=== PATIENT | female | born 1945 | race Caucasian/White ===

== ENCOUNTER 2018-09-26 06:06 | Inpatient (IN) | payer MEDICARE ==
[2018-09-26] MEDS ORDERED: Naloxone HCl 0.4 mg/ml Vial ONE (06:23)
[2018-09-26 06:40] LABS: #Eosinphils 0.1 thou/uL (0.0-0.7); #Lymphocytes 1.2 thou/uL (1.20-3.40); #Monocytes 1.2 thou/uL (0.11-0.59); #Neutrophils 16.8 thou/uL (1.40-6.50); %Basophils 0.1 % (0.0-1.0); %Eosinophils 0.4 % (0.0-10.0); %Lymphocytes 6.2 % (21.0-51.0); %Monocytes 6.1 % (0.0-10.0); %Neutrophils 87.2 % (42.0-75.0); Hemoglobin 10.5 g/dL (12.0-16.0); Mean Corpuscular HGB CONC 32.4 g/dL (32.0-36.0); Mean Corpuscular Hemoglobin 30.7 pg (27.0-31.0); Mean Corpuscular Volume 94.8 fL (78.0-98.0); Mean Platelet Volume 6.5 fL (7.4-10.4); Platelet Count 423 thou/uL (130-400); RBC Distribution Width 12.6 % (11.5-14.5); Red Blood Cell (RBC) Count 3.41 mill/uL (4.20-5.40); White Blood Cell (WBC) Count 19.3 thou/uL (4.8-10.8)
[2018-09-26 06:57] LABS: ALT (SGPT) 11 U/L (8-55); AST (SGOT) 21 U/L (5-34); Acetaminophen Less than 6.0 mcg/mL (10.0-30.0); Albumin 3.8 g/dL (3.4-4.8); Alcohol Less than 10 mg/dL (Less than 10); Alkaline Phosphatase 110 U/L (40-150); Anion Gap 16 mmol/L (10-20); BUN (Urea Nitrogen) 75 mg/dL (9.8-20.1); Bilirubin, Total 0.3 mg/dL (0.2-1.2); CK (CPK) 72 U/L (29-168); Calc. Creatinine Clearance 0 mL/min (70-130); Carbon Dioxide 28 mmol/L (23-31); Chloride 98 mmol/L (98-107); Estimated GFR-MDRD 19; Globulin 2.9 g/dL (2.4-3.5); Glucose 156 mg/dL (83-110); Potassium 4.6 mmol/L (3.5-5.1); Protein, Total 6.7 g/dL (6.0-8.3); Salicylate Less than 8.0 mg/dL (15.0-30.0); Sodium 137 mmol/L (136-145)
[2018-09-26 07:28] LABS: Bilirubin Negative (Negative); Blood, Urine Negative (Negative); Clarity CLEAR (Clear); Glucose, Urine (Dipstick) Negative (Negative); Leukocyte Negative (Negative); Nitrite Negative (Negative); Protein, Urine (Dipstick) Negative (Neg-Trace); Urobilinogen 0.2 mg/dL (0.2-1.0)
[2018-09-26 07:47] LABS: Amphetamine Not Detected (NotDetected); Barbiturates Screen Not Detected (NotDetected); Benzodiazepine Screen Detected (NotDetected); Cocaine Metabolite Screen Not Detected (NotDetected); Medtox Control Line Valid? VALID (VALID); Medtox Reader # READER 1; Methadone Not Detected (NotDetected); Methamphetamine Not Detected (NotDetected); Opiate Screen Not Detected (NotDetected); Oxycodone Screen Not Detected (NotDetected); Phencyclidine (PCP) Not Detected (NotDetected); THC/Cannabinoid Screen Not Detected (NotDetected); Tricyclic Screen Not Detected (NotDetected)
--- NOTE | 2018-09-26 07:52 | RAD ---
CHEST 1 VIEW: COMPARISON: 08/21/2014. HISTORY: Altered mental status. FINDINGS: Normal cardiac silhouette. Pulmonary vessels and hilum are normal. Costophrenic angles are clear. No consolidation or mass. No pneumothorax or osseous abnormalities. Remote right rib fractures. Hi atal hernia is noted. Mild leftward curvature of the upper lumbar spine. IMPRESSION: No acute cardiopulmonary process. POS: [facility]
[2018-09-26] MEDS ORDERED: Piperacillin/Tazobactam 3.375 GM VIAL ONE (08:05)
--- NOTE | 2018-09-26 08:35 | CT ---
PRELIMINARY REPORT/[facility]/EMERGENTY AFTER-HOURS PROCEDURE CT Head Without Contrast EXAM DATE/TIME: 09/26/2018 6:39 AM CLINICAL HISTORY: 72 years old, female; Injury or trauma; Fall; Initial encounter; Abrasion; Head, generalized; Additio nal info: History provided by patient, additional history obtained from ems, f72 presents to ed for f all and AMS. PT called ems from home after PT fell on toilet, hit head. PT has small abrasion on head from fall. PT was anox3 en route by ems and has no complaints at this time. PT denies headac he or neck pain. Hx-diabetic. TECHNIQUE: Axial computed tomography images of the head/brain without contrast. COMPARISON: No relevant prior studies available. FINDINGS: Brain: There is no evidence of intracranial hemorrhage. There are scattered foci of hypoattenuation w ithin the periventricular and subcortical white matter compatible with mild chronic microvascular isc hemic change. Ventricles: Normal. No ventriculomegaly. Bones/joints: Unremarkable. No acute fracture. Sinuses: Visualized sinuses are unremarkable. No acute sinusitis. Mastoid air cells: Visualized mastoid air cells are unremarkable. No mastoid effusion. Soft tissues: Unremarkable. IMPRESSION: No acute intracranial hemorrhage. Thank you for allowing us to participate in the care of your patient. Dictated and Authenticated by: Kevin Saha MD 09/26/2018 7:05 AM Central Time ([place] & [place]) FINAL REPORT HEAD CT WITHOUT CONTRAST: HISTORY: Fall. Altered mental status. COMPARISON: 08/19/2014. FINDINGS: This report is in agreement with the preliminary report by [facility]. No intracranial posttraumatic sequel ae. White matter hypodensities due to chronic small-vessel ischemic changes are identified. POS: [facility]
[2018-09-26] MEDS ORDERED: Ondansetron PF 4 MG/2 ML Vial IVP PRN ×2 (09:51→10:12)
[2018-09-26] MEDS ORDERED: Ondansetron ODT 4 MG TAB PO PRN (09:51)
[2018-09-26] MEDS ORDERED: Acetaminophen 325 MG TAB PO PRN (09:52)
[2018-09-26] MEDS ORDERED: Sodium Chloride 0.9% 1,000 ML IV SCH (10:00)
[2018-09-26] MEDS ORDERED: Vancomycin HCl 1 GM in Premix Bag 1 BAG IVPB SCH (10:00)
[2018-09-26] MEDS: Sodium Chloride 0.9% 1,000 ML IV SCH (11:13)
[2018-09-26] MEDS ORDERED: Dextrose 50% Abboject 50 ML SYRINGE SLOW IVP PRN (13:43)
[2018-09-26] MEDS ORDERED: Dextrose 5% in Water 1,000 ML IV PRN (13:43)
[2018-09-26 14:20] VITALS: BMI 22.8
--- NOTE | 2018-09-26 14:20 | HP ---
PRIMARY CARE PROVIDER: None, city call. CHIEF COMPLAINT: Altered mental status. HISTORY OF PRESENT ILLNESS: Ms. Romero is a pleasant 72-year-old lady, seen at [facility] on September 26, 2018. The patient is able to provide minimal history. Collateral history was obtained from review of medical records and from discussion with emergency room physician. The patient reports that she fell 3 days ago and last night. She describes these as mechanical fall after she tripped on something. She denies any neck pain. She denies any fevers or chills. She is able to tell me her name, but is not oriented to place or time. She denies any chest pain or shortness of breath. She denies any abdominal pain. She denies any cough. She denies any urinary symptoms. REVIEW OF SYSTEMS: All other systems were reviewed and found to be negative. PAST MEDICAL HISTORY: Congestive heart failure, diabetes mellitus type 2, hypothyroidism, depression, hypertension, neuropathy, and degenerative joint disease. SURGICAL HISTORY: Left total knee replacement, tubal ligation, hysterectomy, cataract surgery. ALLERGIES: NO KNOWN DRUG ALLERGIES. MEDICATIONS: Unknown, need to be clarified. FAMILY HISTORY: Could not be elicited. SOCIAL HISTORY: The patient denies tobacco use, alcohol use, or recreational drug use. She lives with her . CODE STATUS: I discussed the patient's code status. In spite of her confused state, she is able to understand the question being asked of her and wishes to be full code. Her is the surrogate decision maker. PHYSICAL EXAMINATION: GENERAL: On examination, Ms. Romero is awake and alert, not in acute distress. VITAL SIGNS: Blood pressure is 138/66, pulse 62, respiratory rate 16, and oxygen saturation 98% on room air. She is afebrile. EYES: No scleral icterus. No conjunctival pallor. ENT: Dry mucosal membranes. No oropharyngeal erythema or exudates. NECK: Supple, nontender. Trachea is midline. RESPIRATORY: Accessory muscles of breathing are not active. Chest wall movements are symmetric bilaterally. Lungs are clear to auscultation without wheeze, rhonchi, or crepitations. CARDIOVASCULAR: S1 and S2 are heard, regular. Peripheral pulses palpable. No carotid bruit. No pericardial rub. ABDOMEN: Soft, nontender, bowel sounds heard, no hepatomegaly, no splenomegaly. NEUROLOGIC: Cranial nerves 2 through 12 intact, deep tendon reflexes 2+. Full neurologic examination was not possible secondary to the patient's noncooperation. Plantar reflexes are downgoing bilaterally. MUSCULOSKELETAL: Power is 5/5 in all four extremities. SKIN: Abrasion on the head. LYMPHATIC: No cervical lymphadenopathy. PSYCHIATRIC: Normal mood, normal affect. The patient is oriented to person only, not place or time. LABORATORY DATA: Ms. Romero's labs and investigations were reviewed. I reviewed her electrocardiogram, which shows normal sinus rhythm, no ST changes to suggest an acute coronary syndrome. I also reviewed her chest x-ray, which does not show any pulmonary infiltrates. Noncontrast CT scan of the brain was unremarkable. She has leukocytosis with 19,300 white cells, of which 87.2% are neutrophils; normocytic anemia with hemoglobin 10.5; elevated platelet count of 423,000. Normal sodium, normal potassium, elevated blood urea nitrogen of 75, elevated creatinine of 2.50, last known creatinine 1.00 on August 24, 2014. Unremarkable liver profile, negative urinalysis and urine drug screen that is only positive for benzodiazepines. ASSESSMENT AND PLAN: Ms. Romero is a pleasant 72-year-old lady, who was seen at [facility] on September 26, 2018. Her problem list includes: 1. Acute metabolic encephalopathy: Etiology is unclear, could be related to infection given her leukocytosis. She will be admitted to the hospital for further management. She has been started on Zosyn and vancomycin, which I will continue for now. We will await blood cultures. We will check MRI of the brain. We will also consult Neurology Service for opinion and help with management. 2. Falls: The patient reports recurrent falls. We will request PT evaluation. 3. Hypertension: We will resume the patient's home medications once clarified, monitor vital signs, and titrate antihypertensives as needed. 4. Acute kidney injury: The patient is clinically dehydrated. We will provide intravenous hydration, recheck creatinine. If not improving, further workup to follow. 5. Diabetes mellitus type 2: Start Accu-Cheks, insulin sliding scale. 6. Depression: Mild, appears stable. 7. Congestive heart failure: Appears stable. Many thanks for allowing me to participate in Ms. Romero's care. Please feel free to contact me with any questions or concerns. LEVEL OF RISK: High. LEVEL OF COMPLEXITY: High. Job ID: [id number]
[2018-09-26] MEDS ORDERED: Colchicine 0.6 MG TAB PO PRN ×2 (15:21→15:37)
--- NOTE | 2018-09-26 15:57 | MRI ---
BRAIN MRI WITHOUT CONTRAST: Date: 09/26/18 COMPARISON: 08/20/14. HISTORY: Fall, altered mental status, acute encephalopathy. TECHNIQUE: Multiplanar, multisequence MR imaging of the brain obtained without contrast. FINDINGS: The axial gradient echo imaging demonstrates no evidence for intracranial hemorrhage. There are numerous foci of increased T2 and FLAIR signal within the periventricular, deep, and subcor tical white matter, as well as within the meera, evidence of moderate small vessel disease, more consp icuous than on the 2014 exam. Arterial flow-voids at the axial level of the skull base appear unremarkable on the T2-weighted imagi ng. Regional bone marrow signal intensity appears within normal limits. The diffusion-weighted imaging demonstrates no evidence for acute infarction. IMPRESSION: No evidence for acute infarction or intracranial hemorrhage. Moderate small vessel disease, progresse d since the 2014 exam. POS: [facility]
[2018-09-26] MEDS ORDERED: Piperacillin/Tazobactam 3.375 GM in Sodium Chloride 0.9% 100 ML IVPB SCH (16:00)
[2018-09-26] MEDS: Topiramate 25 MG TAB PO SCH (21:00)
[2018-09-26] MEDS ORDERED: TOPIRAMATE 75 MG PO SCH (21:00)
[2018-09-26] MEDS: HumaLOG 300 UNITS/3 ML VIAL SC PRN (22:14)
[2018-09-27] MEDS: Sodium Chloride 0.9% 1,000 ML IV SCH ×2 (03:56→13:59)
[2018-09-27 06:12] LABS: #Lymphocytes 1.6 thou/uL (1.20-3.40); #Monocytes 0.6 thou/uL (0.11-0.59); #Neutrophils 13.1 thou/uL (1.40-6.50); %Basophils 0.3 % (0.0-1.0); %Eosinophils 0.3 % (0.0-10.0); %Lymphocytes 10.4 % (21.0-51.0); %Monocytes 4.1 % (0.0-10.0); Hemoglobin 9.5 g/dL (12.0-16.0); Mean Corpuscular HGB CONC 32.6 g/dL (32.0-36.0); Mean Corpuscular Volume 95.2 fL (78.0-98.0); Mean Platelet Volume 6.6 fL (7.4-10.4); Platelet Count 410 thou/uL (130-400); RBC Distribution Width 12.6 % (11.5-14.5); Red Blood Cell (RBC) Count 3.06 mill/uL (4.20-5.40); White Blood Cell (WBC) Count 15.4 thou/uL (4.8-10.8)
[2018-09-27 06:31] LABS: Anion Gap 17 mmol/L (10-20); BUN (Urea Nitrogen) 45 mg/dL (9.8-20.1); Calc. Creatinine Clearance 28 mL/min (70-130); Calcium 9.1 mg/dL (7.8-10.44); Carbon Dioxide 21 mmol/L (23-31); Chloride 104 mmol/L (98-107); Estimated GFR-MDRD 31; Glucose 264 mg/dL (83-110); Potassium 4.3 mmol/L (3.5-5.1); Sodium 138 mmol/L (136-145)
[2018-09-27] MEDS: HumaLOG 300 UNITS/3 ML VIAL SC PRN ×2 (06:55→13:41)
[2018-09-27] MEDS ORDERED: Levothyroxine Sodium 75 MCG TAB PO SCH (09:00)
[2018-09-27] MEDS ORDERED: Citalopram 20 MG TAB PO SCH (09:00)
[2018-09-27] MEDS ORDERED: Benzonatate 100 MG CAP PO SCH (09:00)
[2018-09-27] MEDS ORDERED: Aspirin Chewable 81 MG TAB PO SCH (09:00)
[2018-09-27] MEDS ORDERED: BENZONATATE PO SCH (09:00)
[2018-09-27] MEDS ORDERED: Non-Formulary Item 1 EACH (Esomeprazole Magnesium [Nexium] 20 MG) PO SCH (09:00)
[2018-09-27] MEDS: Topiramate 25 MG TAB PO SCH (09:27)
[2018-09-27] MEDS ORDERED: Vancomycin HCl 750 MG in Sodium Chloride 0.9% 250 ML 250 ML IVPB SCH (11:00)
--- NOTE | 2018-09-27 14:32 | CON ---
DATE OF CONSULTATION: 09/27/2018 CARDIOLOGY CONSULTATION REASON FOR CONSULTATION: Nonsustained SVT. HISTORY OF PRESENT ILLNESS: Ms. Romero is a very pleasant 72-year-old white female who comes to the hospital for altered mental status. She was evaluated and diagnosed with an infectious process, unknown source, and was started on IV antibiotics. She was admitted to the stroke unit and has been on telemetry since. Earlier today, she had a run of nonsustained SVT, heart rate in the 150s, it lasted for about 3 seconds. She was asymptomatic during the episode. On my evaluation, Ms. Romero feels back to normal. She states that she wants to go home and she has to take care of her . PAST MEDICAL HISTORY: 1. History of heart failure. However, talking to her, she has been told that at some point she had some heart failure, but she has always been told that her heart looks normal. The last evaluation we have here is in 2013 with an echo with an EF which was in the 60% range. 2. Type 2 diabetes. 3. Hypothyroidism. 4. Depression. 5. Hypertension. 6. Peripheral neuropathy. 7. Degenerative joint disease. PAST SURGICAL HISTORY: 1. Left total knee replacement. 2. Tubal ligation. 3. Hysterectomy. 4. Cataract surgery. ALLERGIES: NO KNOWN DRUG ALLERGIES. OUTPATIENT MEDICATIONS: 1. Humulin N insulin. 2. Nexium. 3. Aspirin 81 a day. 4. Metoprolol succinate 100 mg a day. 5. Celexa. 6. Benzonatate. 7. Meloxicam. 8. Colchicine. 9. Zofran p.r.n. 10. Synthroid 75 mcg a day. 11. Humalog. 12. Lasix 80 mg a day. 13. Ativan. 14. Topamax. 15. Ultram. 16. Zanaflex. ALLERGIES: NO KNOWN DRUG ALLERGIES. SOCIAL HISTORY: No alcohol, tobacco, or drugs. FAMILY HISTORY: No early coronary artery disease. REVIEW OF SYSTEMS: A 12-point review of systems was done and was found to be negative unless stated in the history of present illness. PHYSICAL EXAMINATION: VITAL SIGNS: Temperature 98.6, pulse 71, respiratory rate 18, saturation 94% on room air, and blood pressure 148/70. GENERAL: Awake, alert, and oriented x3, in no distress. HEENT: Normocephalic and atraumatic. NECK: Supple. LUNGS: Clear. CARDIOVASCULAR: S1 and S2. No S3 or S4. No murmurs. ABDOMEN: Soft. Positive bowel sounds. EXTREMITIES: No edema. SKIN: Warm and dry. LABORATORY DATA: Laboratory work was reviewed. CBC with a white count of 15 down from 19, hemoglobin of 9.5, hematocrit of 29, platelet count of 410. Chemistries unremarkable except for a creatinine of 2.5 on admission but down to 1.6, BUN of 75 down to 45. LFTs were all normal. Troponin x1 was negative. UA was negative. Toxicology was just positive for benzodiazepines, otherwise everything was not detected. Blood cultures are negative so far. Urine culture is negative as well. Telemetry was reviewed. EKG was reviewed. ASSESSMENT: 1. Nonsustained supraventricular tachycardia. 2. Infectious process. 3. Falls and altered mentation, improved. 4. History of heart failure, unknown which kind, likely diastolic. PLAN: 1. For nonsustained SVT, we would only recommend be on a beta-charlotte. She is already on 100 mg of Toprol-XL, will continue this home medication. 2. We will get an echocardiogram to make sure that her LV function and valvular structures are not remarkable. 3. Further recommendations per results of echo. 4. Otherwise, from the SVT standpoint, just a beta-charlotte and may be discharged home. Job ID: [id number]
--- NOTE | 2018-09-27 15:21 | PDOC.PN ---
- Subjective Encounter Start Date: 09/27/18 Encounter Start Time: 11:40 Pt seen for followup re: acute metabolic encephalopathy. Denies chest pain, shortness of breath, fevers or chills. - Objective Resuscitation Status - Order Detail: 09/26/18 13:41 Resuscitation Status Routine Resuscitation Status: FULL: Full Resuscitation Discussed with: patient TIGIST Reviewed: Yes Vital Signs & Weight: Vital Signs (12 hours) Temp Pulse Pulse Pulse Resp BP BP 09/27/18 11:23 98.6 F 71 18 09/27/18 09:35 79 77 180/81 H 183/79 H 09/27/18 08:00 09/27/18 07:35 99.5 F 72 16 09/27/18 04:00 98.7 F 73 19 BP Pulse Ox 09/27/18 11:23 148/70 H 95 09/27/18 09:35 09/27/18 08:00 95 09/27/18 07:35 138/63 97 09/27/18 04:00 145/66 H 95 Weight Weight 125 lb I&O: 09/26/18 09/27/18 09/28/18 06:59 06:59 06:59 Intake Total 827 593 Balance 827 593 Result Diagrams: 09/27/18 05:58 09/27/18 05:58 Additional Labs: Accuchecks 09/27/18 09/27/18 09/26/18 10:42 05:57 19:59 POC Glucose 236 H 266 H 283 H 09/26/18 16:48 POC Glucose 242 H EKG Reviewed by me: Yes (Tele: NSR, SVT) Phys Exam - Physical Examination Constitutional: NAD HEENT: moist MMs Neck: supple Respiratory: clear to auscultation bilateral Cardiovascular: RRR Gastrointestinal: soft Neurological: moves all 4 limbs Psychiatric: normal affect, A&O x 3 Dx/Plan (1) Acute metabolic encephalopathy Code(s): G93.41 - METABOLIC ENCEPHALOPATHY Status: Acute Comment: Improved (2) SVT (supraventricular tachycardia) Code(s): I47.1 - SUPRAVENTRICULAR TACHYCARDIA Status: Acute Comment: consult cardiology (3) Acute worsening of stage 3 chronic kidney disease Code(s): N18.3 - CHRONIC KIDNEY DISEASE, STAGE 3 (MODERATE) Status: Acute Comment: Improved (4) Hypertension Code(s): I10 - ESSENTIAL (PRIMARY) HYPERTENSION Status: Chronic Comment: Monitor vital signs, titrate antihypertensives as needed (5) Hypothyroidism Code(s): E03.9 - HYPOTHYROIDISM, UNSPECIFIED Status: Chronic Comment: continue synthroid - Plan * . Pt on empiric antibiotics Review of Systems - Review of Systems Respiratory: negative: Cough, Shortness of Breath, SOB with Excertion, Pleuritic Pain, Wheezing Cardiovascular: negative: chest pain, palpitations, orthopnea, paroxysmal nocturnal dyspnea, edema, light headedness - Medications/Allergies Allergies/Adverse Reactions: Allergies Allergy/AdvReac Type Severity Reaction Status Date / Time No Allergy Information Allergy Verified 08/19/14 13:21 Available Medications: Current Medications Aspirin (Aspirin Chewable) 81 mg PO DAILY [facility] Last Admin: 09/27/18 09:26 Dose: 81 mg Benzonatate (Tessalon) 100 mg PO DAILY [facility] Last Admin: 09/27/18 09:26 Dose: 100 mg Citalopram Hydrobromide (Celexa) 20 mg PO DAILY [facility] Last Admin: 09/27/18 09:27 Dose: Not Given Colchicine (Colcrys) 0.6 mg PO PRN PRN PRN Reason: GOUT Dextrose/Water (Dextrose 50%) 25 gm SLOW IVP PRN PRN PRN Reason: Hypoglycemia Glucagon (Glucagon) 1 mg IM PRN PRN PRN Reason: Hypoglycemia Sodium Chloride (Normal Saline 0.9%) 1,000 mls @ 75 mls/hr IV .[id number] [facility] Last Admin: 09/27/18 13:59 Dose: Not Given Dextrose/Water (D5w) 1,000 mls @ 0 mls/hr IV .Q0M PRN PRN Reason: Hypoglycemia Insulin Human Lispro (Humalog) 0 units SC .MILD SLIDING SCALE PRN PRN Reason: Mild Correctional Scale Last Admin: 09/27/18 13:41 Dose: 3 units Levothyroxine Sodium (Synthroid) 75 mcg PO DAILY [facility] Last Admin: 09/27/18 09:25 Dose: 75 mcg Metoprolol Succinate (Toprol Xl) 100 mg PO DAILY [facility] Last Admin: 09/27/18 09:25 Dose: 100 mg Miscellaneous Medication (Pharmacy To Dose) 1 each IVPB ONE PRN PRN Reason: Pharmacy to dose Stop: 10/06/18 13:31 Ondansetron HCl (Zofran) 4 mg IVP Q6H PRN PRN Reason: Nausea/Vomiting Pantoprazole Sodium (Protonix) 40 mg PO DAILY [facility] Last Admin: 09/27/18 09:27 Dose: 40 mg Sodium Chloride (Flush - Normal Saline) 10 ml IVF Q12HR [facility] Last Admin: 09/27/18 09:31 Dose: Not Given Sodium Chloride (Flush - Normal Saline) 10 ml IVF PRN PRN PRN Reason: Saline Flush Topiramate (Topamax) 75 mg PO BID [facility] Last Admin: 09/27/18 09:27 Dose: Not Given
[2018-09-27 15:27] VITALS: BP 150/66; TEMP 99
== END 2018-09-27 17:28 | disposition left against medical advice (07) | DRG 71 ==
LOC: ERS 06:06 → 2SE 09:14
PROVIDERS: ADMIT Internal Medicine; ATTEND Internal Medicine
DX: G93.41 Metabolic encephalopathy (principal); N17.9 Acute kidney failure, unspecified; I47.1 Supraventricular tachycardia; I13.0 Hypertensive heart and chronic kidney disease with heart failure and stage 1 through stage 4 chronic kidney disease, or unspecified chronic kidney disease; I50.30 Unspecified diastolic (congestive) heart failure; E03.9 Hypothyroidism, unspecified; F32.9 Major depressive disorder, single episode, unspecified; M19.90 Unspecified osteoarthritis, unspecified site; R29.6 Repeated falls; E11.40 Type 2 diabetes mellitus with diabetic neuropathy, unspecified; E86.0 Dehydration; B99.9 Unspecified infectious disease; N18.3 Chronic kidney disease, stage 3 (moderate); Z96.652 Presence of left artificial knee joint; Z90.710 Acquired absence of both cervix and uterus; Z98.49 Cataract extraction status, unspecified eye; Z98.51 Tubal ligation status; Z79.82 Long term (current) use of aspirin
CPT/HCPCS: 36415; 36416; 51701; 70450; 70551; 71045; 80048; 80053; 80306; 80307; 81003; 82550; 84484; 85025; 87040; 87086; 93005; 93306; 94760; 96361; 96365; 96375; A4353; J2310; J2543; J3370; J7050